=== PATIENT | male | born 1985 | race Caucasian/White ===

== ENCOUNTER 2024-01-17 09:12 | Observation (INO) ==
--- NOTE | 2024-01-17 09:40 | DR.ABDMALE ---
HPI Time seen Time Seen by Provider: 01/17/24 09:35 PCP Primary Care Physician: MITALI Meadows Complaint Chief Complaint Doctors Comments: 38-year-old male presents for evaluation. Had sudden onset of diffuse abdominal pain, was severe, 2 nights ago. Pain was associated with nausea. Pain was bit better the next day, then return. Pain is now fairly constant steady, dull pain diffusely located across the abdomen. Does not radiate. Worse with movement and palpation, nothing makes it better. Has been nauseous but no vomiting. Denies fever, chills, upper respiratory symptoms. No bowel or bladder issues. Denies change in stool. Has an ruby etite, has been eating. No prior history of abdominal surgery Chief Complaint:: Pt states that Sunday night he had a sudden onset of nausea and severe constant generalized abdominal pain. Yesterday the nausea was gone and the pain was still there but better. This morning pt states that he has had some nausea but denies vomiting. Pt states that he has constant aching gene ralized abdominal pain with intermittent sharp stabbing pains. Denies any alleviating or exacerbating factors. Pt denies any diarrhea or constipation. Last normal bowel movement was this morning. Pt also states that today he has had some intermittent dizziness/lightheadedness. COVID-19 Coronavirus risk:travel/contact w/high risk person: No Has patient experienced Coronavirus symptoms: No Reviewed Nurses Notes Review: Yes Source History provided by:: Patient Mode of arrival Mode of Arrival: Ambulatory Timing Onset of Chief Complaint: 01/15/24 PMH PMH Past Medical History: Yes Past Medical History: Dyslipidemia Past Surgical History: Yes Surgical History: Ortho Surgery Past Surgical History Comment: right elbow surgery x 2 Family History History of Family Medical Conditions: Yes Family Medical History: Diabetes Mellitus and Hypertension Family Medical History Comment: dyslipidemia Social History Does patient currently use any type of tobacco product: No Have you used tobacco products in the last 12 months: No Type of Tobacco Use: None Does any household member use tobacco: No Alcohol Use: None Do you use any recreational Drugs:: No Lives With: Family Lives Where: Home Travel Risk Coronavirus risk:travel/contact w/high risk person: No Has patient experienced Coronavirus symptoms: No Infectious screening In the last 2 months have you had wt loss of >10#?: NO Have you had fever, night sweats or hemotysis?: No Have you traveled outside the country in the last 6 months?: No Isolation: Standard ROS Review of Systems Constitutional: No Symptoms Reported Eyes: No Symptoms Reported ENTM: No Symptoms Reported Respiratoy: No Symptoms Reported Cardiovascular: No Symptoms Reported Gastrointestinal/Abdominal: See HPI Genitourinary: No Symptoms Reported Neurological: No Symptoms Reported Musculoskeletal: No Symptoms Reported Integumentary: No Symptoms Reported Psychiatric: No Symptoms Reported All Other Systems: Reviewed and Negative PE Vital Signs Vital Signs: Temp Pulse Resp BP Pulse Ox O2 Del Method 01/17/24 13:14 20 01/17/24 10:56 18 01/17/24 09:49 18 01/17/24 09:21 98.1 F 82 20 140/78 95 Room Air General General Appearance: Alert and In No Apparent Distress Eyes Eye exam: PERRL and EOMI ENT ENT Exam: Normal Oropharynx and Mucous Membranes Moist Neck Neck Exam: Normal Inspection Respiratory Respiratory Exam: Normal Lung Sounds Bilat; negative Accessory Muscle Use or Respiratory Distress Cardiovascular Cardiovascular Exam: Regular Rate, Normal Rhythm and Normal Heart Sounds Abdominal Exam Abdominal Exam: Normal Bowel Sounds, Soft and Tenderness (Right lower quadrant, no guarding or rebound) Back Back Exam: Normal Inspection and Full ROM; negative (R) CVA Tenderness or (L) CVA Tenderness Extremeties Extremities Exam: Normal Inspection and Full ROM; negative Edema Neurologic Neurological Exam: Alert, Oriented X3 and CN II-XII Intact; negative Motor Sensory Deficit Skin Skin Exam: Warm and Dry COURSE Treatment Treatment: 58-year-old male with 2 days of pain, nausea. Currently tender in the right lower quadrant, no guarding or rebound. Workup initiated. Patient given IV fluids, IV Toradol/Zofran. 1114 -white count slightly elevated 13,000, chemistries normal. Not much help with the Toradol. Given morphine 4 mg with additional Zofran. Will pursue CT abd/pelvis with IV contrast. 1234 -CT cons istent with acute appendicitis. Dr. Rg, general surgery, notified. Patient had a protein shake approximate 4 hours ago. Will keep NPO. Will continue IV fluids and add IV antibiotics. ROR Labs Reviewed Laboratory Results Reviewed?: Yes 01/17/24 09:40 01/17/24 09:40 Laboratory: WBC 13.7 X10^3/uL (3.6-10.0) H 01/17/24 09:40 RBC 5.27 X10^6/uL (4.7-6.0) 01/17/24 09:40 Hgb 15.2 g/dL (13.5-18.0) 01/17/24 09:40 Hct 45.0 % (42.0-54.0) 01/17/24 09:40 MCV 85.4 fL (80.0-100.0) 01/17/24 09:40 MCH 28.7 pg (27.0-34.0) 01/17/24 09:40 MCHC 33.7 g/dL (33.0-35.0) 01/17/24 09:40 RDW 12.7 % (11.6-16.5) 01/17/24 09:40 Plt Count 259 X10^3/uL (150.0-450.0) 01/17/24 09:40 MPV 8.0 fL (7.4-11.0) 01/17/24 09:40 Neut % (Auto) 76.3 % (42.0-75.0) H 01/17/24 09:40 Lymph % (Auto) 13.3 % (21.0-51.0) L 01/17/24 09:40 [place] % (Auto) 7.5 % (0.0-13.0) 01/17/24 09:40 Eos % (Auto) 2.5 % (0.9-2.9) 01/17/24 09:40 Baso % (Auto) 0.4 % (0.2-1.0) 01/17/24 09:40 Neut # (Auto) 10.5 x10^3/uL (2.2-4.8) H 01/17/24 09:40 Lymph # (Auto) 1.8 X10^3/uL (1.3-2.9) 01/17/24 09:40 [place] # (Auto) 1.0 x10^3/uL (0.3-0.8) H 01/17/24 09:40 Eos # (Auto) 0.3 x10^3/uL (0.0-0.2) H 01/17/24 09:40 Baso # (Auto) 0.1 X10^3/uL (0.0-0.1) 01/17/24 09:40 Absolute Nucleated RBC 0.0 /100WBC 01/17/24 09:40 Sodium 137 mmol/L (136-145) 01/17/24 09:40 Corrected Sodium TNP 01/17/24 09:40 Potassium 3.8 mmol/L (3.5-5.1) 01/17/24 09:40 Chloride 102 mmol/L (98-107) 01/17/24 09:40 Carbon Dioxide 27.6 mmol/L (21-32) 01/17/24 09:40 BUN 16 mg/dL (7-18) 01/17/24 09:40 Creatinine 1.11 mg/dL (0.70-1.30) 01/17/24 09:40 Est GFR (MDRD) Af Amer > 60 (>60) 01/17/24 09:40 Est GFR (MDRD) Non-Af > 60 (>60) 01/17/24 09:40 Glucose 91 mg/dL (65-99) 01/17/24 09:40 Calcium 9.1 mg/dL (8.5-10.1) 01/17/24 09:40 Corrected Calcium TNP 01/17/24 09:40 Total Bilirubin 0.40 mg/dL (0.2-1.0) 01/17/24 09:40 AST 25 Units/L (15-37) 01/17/24 09:40 ALT 71 Units/L (12-78) 01/17/24 09:40 Alkaline Phosphatase 66 Units/L (46-116) 01/17/24 09:40 Total Protein 7.4 g/dL (6.4-8.2) 01/17/24 09:40 Albumin 3.7 g/dL (3.4-5.0) 01/17/24 09:40 Globulin 3.7 g/dL (2.5-4.5) 01/17/24 09:40 Albumin/Globulin Ratio 1.0 Ratio (1.1-2.1) L 01/17/24 09:40 Lipase 37 Units/L (16-77) 01/17/24 09:40 Specimen Type Clean catch urine 01/17/24 10:57 Urine Color Straw (YELLOW) 01/17/24 10:57 Urine Appearance Clear (CLEAR) 01/17/24 10:57 Urine pH 6.5 (5.0 - 8.0) 01/17/24 10:57 Ur Specific [place] 1.015 (1.000-1.030) 01/17/24 10:57 Urine Protein Negative (NEGATIVE) 01/17/24 10:57 Urine Glucose (UA) Negative (NEGATIVE) 01/17/24 10:57 Urine Ketones Negative (NEGATIVE) 01/17/24 10:57 Urine Blood Negative (NEGATIVE) 01/17/24 10:57 Urine Nitrite Negative (NEGATIVE) 01/17/24 10:57 Urine Bilirubin Negative (NEGATIVE) 01/17/24 10:57 Urine Urobilinogen Normal (NORMAL) 01/17/24 10:57 Ur Leukocyte Esterase Negative (NEGATIVE) 01/17/24 10:57 WBC elevated XRAY XRAY Interpreted by: Radiologist X-ray Results: EXAM: CT abdomen pelvis with contrast HISTORY: Abdominal pain TECHNIQUE: Axial postcontrast images with coronal and sagittal reformats. Dose reduction procedures were used with mA/kv adjusted for body size. COMPARISON: None FINDINGS: Lung bases are clear. Liver is normal in size and configuration and without focal space-occupying disease. The attenuation of the hepatic parenchyma is decreased suggestive of fatty infiltration. No opaque stones are present within the gallbladder. Spleen, adrenal glands, and pancreas appear within normal limits. Incidental note is made of a small splenule in the splenic hilum. Kidneys are unobstructed and without stones or masses. No ureteral calculi are identified. Abdominal aorta is normal in size. No enlarged intraperitoneal or retroperitoneal lymphadenopathy is identified. The appendix is distended maximum diameter 13 mm. There is an appendicolith in the mid body of the appendix. There is moderately severe periappendiceal inflammation. Findings are consistent with acute appendicitis without rupture at this time. There are no findings suggestive of enteritis, colitis, or diverticulitis. Examination of the pelvis demonstrated no evidence for pelvic masses, pelvic fluid, or pelvic lymphadenopathy. No bladder abnormality is identified. No lytic or blastic skeletal lesions of significance identified. IMPRESSION: Findings consistent with acute appendicitis as described above and for which immediate surgical evaluation is recommended. Fatty infiltration of the liver THIS IS AN ELECTRONICALLY VERIFIED FINAL REPORT 01/17/2024 12:07 PM - Electronically signed by Maxwell Berry MD Opioid Opioid Risk Tool Age (Darrius box if 16-45): Yes History of Preadolescent Sexual Abuse: No Total: 1 Total Score Risk Category: Low Risk Copyright: Nam FLORES predicting aberrant behaviors Discharge Plan Diagnosis Discharge Problem: Acute appendicitis Discharge Plan Patient Disposition: 09 ADMITTED INPATIENT Condition: Stable Orders to Discharge Patient Discharge Orders: Transfer (Routine); Ordered 01/17/24 Ordered By: Bo Noble
[2024-01-17] MEDS: ZOFRAN INJ 4 MG VIAL IVP ONE ×2 (09:48→10:56)
[2024-01-17] MEDS: NS 1,000 ML IV 1,000 ML IV ONE (09:49)
[2024-01-17] MEDS: TORADOL 30 MG VIAL IVP ONE (09:49)
[2024-01-17 09:54] LABS: BASOPHILS # (AUTO) 0.1 X10^3/uL (0.0-0.1); BASOPHILS % (AUTO) 0.4 % (0.2-1.0); EOSINOPHILS # (AUTO) 0.3 x10^3/uL (0.0-0.2); EOSINOPHILS % (AUTO) 2.5 % (0.9-2.9); HEMOGLOBIN 15.2 g/dL (13.5-18.0); LYMPHOCYTES # (AUTO) 1.8 X10^3/uL (1.3-2.9); LYMPHOCYTES % (AUTO) 13.3 % (21.0-51.0); MEAN CORPUSCULAR HEMOGLOBIN 28.7 pg (27.0-34.0); MEAN CORPUSCULAR HGB CONC 33.7 g/dL (33.0-35.0); MEAN CORPUSCULAR VOLUME 85.4 fL (80.0-100.0); MONOCYTES % (AUTO) 7.5 % (0.0-13.0); NEUTROPHILS # (AUTO) 10.5 x10^3/uL (2.2-4.8); NEUTROPHILS % (AUTO) 76.3 % (42.0-75.0); PLATELET COUNT 259 X10^3/uL (150.0-450.0); RED BLOOD COUNT 5.27 X10^6/uL (4.7-6.0); RED CELL DISTRIBUTION WIDTH 12.7 % (11.6-16.5); WHITE BLOOD COUNT 13.7 X10^3/uL (3.6-10.0)
[2024-01-17 10:27] LABS: ALANINE AMINOTRANSFERASE 71 Units/L (12-78); ALBUMIN 3.7 g/dL (3.4-5.0); ALKALINE PHOSPHATASE 66 Units/L (46-116); ASPARTATE AMINO TRANSFERASE 25 Units/L (15-37); BLOOD UREA NITROGEN 16 mg/dL (7-18); CALCIUM 9.1 mg/dL (8.5-10.1); CARBON DIOXIDE 27.6 mmol/L (21-32); CHLORIDE 102 mmol/L (98-107); CREATININE 1.11 mg/dL (0.70-1.30); GLUCOSE 91 mg/dL (65-99); LIPASE 37 Units/L (16-77); POTASSIUM 3.8 mmol/L (3.5-5.1); SODIUM 137 mmol/L (136-145); TOTAL PROTEIN 7.4 g/dL (6.4-8.2); eGFR NON BLACK RACES > 60 (>60)
[2024-01-17] MEDS: MORPHINE SULFATE INJ 4 MG IVP ONE (10:56)
[2024-01-17 11:40] LABS: APPEARANCE,URINE CLEAR (CLEAR); BILIRUBIN,URINE NEGATIVE (NEGATIVE); BLOOD/HEMOGLOBIN,URINE NEGATIVE (NEGATIVE); COLOR,URINE STRAW (YELLOW); GLUCOSE, URINE NEGATIVE (NEGATIVE); KETONES,URINE NEGATIVE (NEGATIVE); LEUKOCYTE ESTERASE ,URINE NEGATIVE (NEGATIVE); NITRITES,URINE NEGATIVE (NEGATIVE); PH,URINE 6.5 (5.0 - 8.0); PROTEIN,URINE NEGATIVE (NEGATIVE); UROBILINOGEN,URINE NORMAL (NORMAL)
--- NOTE | 2024-01-17 12:11 | CT ---
EXAM: CT abdomen pelvis with contrast HISTORY: Abdominal pain TECHNIQUE: Axial postcontrast images with coronal and sagittal reformats. Dose reduction procedures were used w ith mA/kv adjusted for body size. COMPARISON: None FINDINGS: Lung bases are clear. Liver is normal in size and configuration and without focal space-occupying disease. The attenuation of the hepatic parenchyma is decreased suggestive of fatty infiltration. N o opaque stones are present within the gallbladder. Spleen, adrenal glands, and pancreas appear with in normal limits. Incidental note is made of a small splenule in the splenic hilum. Kidneys are jessika bstructed and without stones or masses. No ureteral calculi are identified. Abdominal aorta is norm al in size. No enlarged intraperitoneal or retroperitoneal lymphadenopathy is identified. The appen lopez is distended maximum diameter 13 mm. There is an appendicolith in the mid body of the appendix. There is moderately severe periappendiceal inflammation. Findings are consistent with acute appendi citis without rupture at this time. There are no findings suggestive of enteritis, colitis, or diver ticulitis. Examination of the pelvis demonstrated no evidence for pelvic masses, pelvic fluid, or pe lvic lymphadenopathy. No bladder abnormality is identified. No lytic or blastic skeletal lesions of significance identified. IMPRESSION: Findings consistent with acute appendicitis as described above and for which immediate surgical evalu ation is recommended. Fatty infiltration of the liver THIS IS AN ELECTRONICALLY VERIFIED FINAL REPORT 01/17/2024 12:07 PM - Electronically signed by Maxwell Berry MD
[2024-01-17] MEDS ORDERED: NS 250 ML IV 25 ML IV PRN ×2 (12:34→13:48)
[2024-01-17] MEDS: ZOSYN VIAL 3.375 GRAMS 3.375 G in NS 100 ML IV 100 ML IV ONE (12:41)
[2024-01-17] MEDS ORDERED: CONSULT PHARMACY - POTASSIUM & MAGNESIUM XX SCH (14:00)
[2024-01-17 14:34] VITALS: BMI 30.8
[2024-01-17] MEDS: TORADOL 30 MG VIAL ONE ×2 (14:34→15:25)
[2024-01-17] MEDS: ZOFRAN INJ 4 MG VIAL ONE ×3 (14:35→15:25)
[2024-01-17] MEDS: NS 1,000 ML IV 1,000 ML ONE (14:35)
[2024-01-17] MEDS: MORPHINE SULFATE INJ 4 MG ONE (14:36)
[2024-01-17] MEDS: OMNIPAQUE 350 mg/mL 100 mL BTL 100 ML ONE (14:37)
[2024-01-17] MEDS: D5 NS 1,000 ML IV 1,000 ML IV SCH (14:43)
[2024-01-17] MEDS: LR 1,000 ML IV 1,000 ML IV ONE (14:58)
[2024-01-17] MEDS: BRIDION ONE (15:25)
[2024-01-17] MEDS: FENTANYL VIAL INJ 100 mcg ONE (15:25)
[2024-01-17] MEDS: REGLAN INJ 10 MG VIAL ONE (15:25)
[2024-01-17] MEDS ORDERED: KETAMINE HCL ONE (15:25)
[2024-01-17] MEDS: PEPCID 20 MG VIAL ONE (15:25)
[2024-01-17] MEDS: ZEMURON 100 MG VIAL ONE (15:25)
[2024-01-17] MEDS: OFIRMEV IV 1000 MG VIAL 1,000 MG/100 ML VIAL IV ONE (15:25)
[2024-01-17] MEDS ORDERED: ULTANE GAS IN ONE (15:25)
[2024-01-17] MEDS: NS 100 ML IV 100 ML ONE (15:25)
[2024-01-17] MEDS: ANCEF VIAL 1 GRAM ONE (15:25)
[2024-01-17] MEDS: XYLOCAINE 2 % (PLAIN) ONE (15:25)
[2024-01-17] MEDS: DIPRIVAN VIAL 20 ML ONE (15:25)
[2024-01-17] MEDS: VERSED ONE (15:25)
[2024-01-17] MEDS: ZOSYN VIAL 3.375 GRAMS 3.375 G in NS 100 ML IV 100 ML IV SCH (15:37)
[2024-01-17] MEDS: DECADRON INJ ONE (15:39)
[2024-01-17] MEDS: ROBINUL ONE (15:43)
[2024-01-17] MEDS: BACTROBAN TOPICAL OINT ONE (15:43)
[2024-01-17] MEDS: EPHEDRINE SULFATE INJ ONE (15:46)
[2024-01-17] MEDS ORDERED: DILAUDID INJ IVP PRN (16:03)
[2024-01-17] MEDS ORDERED: ZOFRAN INJ 4 MG VIAL IVP PRN (16:03)
[2024-01-17] MEDS ORDERED: BENADRYL INJ 50 MG VIAL IVP PRN (16:03)
[2024-01-17] MEDS: MORPHINE SULFATE INJ 10 MG ONE (16:07)
[2024-01-17] MEDS: D5 1/2 NS 1,000 ML 1,000 ML IV SCH (16:57)
[2024-01-17] MEDS: DILAUDID INJ IVP PRN (21:19)
[2024-01-18 04:21] VITALS: RESP 18
[2024-01-18 06:43] LABS: BASOPHILS % (AUTO) 0.1 % (0.2-1.0); HEMATOCRIT 39.9 % (42.0-54.0); HEMOGLOBIN 13.7 g/dL (13.5-18.0); LYMPHOCYTES # (AUTO) 1.1 X10^3/uL (1.3-2.9); LYMPHOCYTES % (AUTO) 10.2 % (21.0-51.0); MEAN CORPUSCULAR HEMOGLOBIN 29.3 pg (27.0-34.0); MEAN CORPUSCULAR HGB CONC 34.3 g/dL (33.0-35.0); MEAN CORPUSCULAR VOLUME 85.4 fL (80.0-100.0); MEAN PLATELET VOLUME 8.3 fL (7.4-11.0); MONOCYTES # (AUTO) 0.8 x10^3/uL (0.3-0.8); MONOCYTES % (AUTO) 7.3 % (0.0-13.0); NEUTROPHILS # (AUTO) 8.8 x10^3/uL (2.2-4.8); NEUTROPHILS % (AUTO) 82.4 % (42.0-75.0); PLATELET COUNT 252 X10^3/uL (150.0-450.0); RED BLOOD COUNT 4.67 X10^6/uL (4.7-6.0); RED CELL DISTRIBUTION WIDTH 12.8 % (11.6-16.5); WHITE BLOOD COUNT 10.7 X10^3/uL (3.6-10.0)
[2024-01-18 08:00] VITALS: BP 134/68; PULSE 70; TEMP 98.3; O2SAT 96
== END 2024-01-18 11:50 | disposition home or self-care (01) ==
LOC: ER 09:12 → MED/SURG 09:12
PROVIDERS: ADMIT Surgery; ATTEND Surgery
PROC: APPYLAP (ICD-10-PCS; 2024-01-17 18:45)